=== PATIENT | female | born 1975 | race Caucasian/White ===

== ENCOUNTER 2019-04-27 09:20 | Emergency (ER) | payer OTHER ==
[~2019-04-27] VITALS: Ht 172.7 cm; Wt 65.8 kg
[~2019-04-27 09:20] MED LIST: ALBU90OI INH; AMOX500 PO; BUPR150ER; CHLO25 PO; CIPR500; CIPR500 PO; CODGUAEL PO; CYCL10 PO; DOXY100 PO; HYDACE5; HYDACE5 PO; IBUP800 PO; LEVFLO500 PO; NAPR375 PO; NAPR500 PO; OMEP20ER PO; PARO20; PENVK500 PO; PRED20 PO; RXSULTRIDS PO; RXTRAM50 PO; SULTRIDS PO; SULTRISS
[2019-04-27] MEDS ORDERED: SUBOXONE 8 MG-1 EACH SL (09:52)
== END 2019-04-27 12:55 | disposition home or self-care (01) ==
LOC: ER 09:20
DX: F41.9 Anxiety disorder, unspecified (principal); Z76.0 Encounter for issue of repeat prescription; F17.210 Nicotine dependence, cigarettes, uncomplicated; Z88.1 Allergy status to other antibiotic agents; Z88.8 Allergy status to other drugs, medicaments and biological substances; Z79.899 Other long term (current) drug therapy
CPT/HCPCS: 99281